=== PATIENT | female | born 1980 | race Caucasian/White ===

== ENCOUNTER 2017-05-01 15:41 | Emergency (ER) | payer SELFPAY ==
[~2017-05-01] VITALS: Ht 154.9 cm; Wt 57.2 kg
[2017-05-01 16:19] VITALS: BP 134/86
== END 2017-05-01 17:22 | disposition home or self-care (01) ==
LOC: ER 15:56
DX: S20.211A Contusion of right front wall of thorax, initial encounter (principal); W01.0XXA Fall on same level from slipping, tripping and stumbling without subsequent striking against object, initial encounter; Y93.89 Activity, other specified; Y92.89 Other specified places as the place of occurrence of the external cause; Y99.8 Other external cause status
CPT/HCPCS: 71101; 81025